=== PATIENT | female | born 1990 | race Caucasian/White ===

== ENCOUNTER 2016-08-09 19:23 | Emergency (ER) | payer OTHER ==
[~2016-08-09] VITALS: Ht 172.7 cm; Wt 69.4 kg
[2016-08-09] MEDS ORDERED: AUGMENTIN875 MG PO (20:48)
[2016-08-09 21:32] VITALS: BP 134/92
== END 2016-08-09 21:35 | disposition home or self-care (01) ==
LOC: EME 19:23
PROC: 3E0234Z Introduction of Serum, Toxoid and Vaccine into Muscle, Percutaneous Approach (ICD-10-PCS; principal; 2016-08-09)
DX: S61.451A Open bite of right hand, initial encounter (principal); L03.113 Cellulitis of right upper limb; W55.01XA Bitten by cat, initial encounter
CPT/HCPCS: 99281; 99284; J0295